=== PATIENT | female | born 1960 | race African-American/Black ===

== ENCOUNTER 2016-10-24 04:48 | Emergency (ER) | payer SELFPAY ==
[~2016-10-24] VITALS: Ht 172.7 cm; Wt 68.0 kg
[2016-10-24] MEDS ORDERED: PREG75CA PO (05:01)
[2016-10-24] MEDS ORDERED: HYDR-548 PO (05:01)
--- NOTE | 2016-10-24 05:19 | NUR ---
Pt ambulated to room with slow shuffled gait using cane. Pt c/o severe lower back radiating down left leg s/p mech fall. Pos LUCIE. at bedside, awaiting further orders.
[2016-10-24] MEDS ORDERED: HYDROCODONE/APAP 5-325MG TABLET PO ONE (05:30)
[2016-10-24] MEDS ORDERED: HYDROCODONE/APAP 5-325MG TABLET ONE (05:35)
--- NOTE | 2016-10-24 05:35 | NUR ---
Pt seen by . Pt medicated for discomfort, will monitor for effects of medication. Xrays pending.
--- NOTE | 2016-10-24 06:25 | NUR ---
Pt sts pain is improving. Pt stable for discharge per MD. Pt given ACI. Pt verbalized understanding of dc instructions. Pt ambulated out of er with slow steady gait using her cane with ride home.
[2016-10-24 06:26] VITALS: BP 140/70
== END 2016-10-24 06:27 | disposition home or self-care (01) ==
LOC: ER 04:51
DX: M54.5 Low back pain (principal); R53.1 Weakness; M62.552 Muscle wasting and atrophy, not elsewhere classified, left thigh; Z85.038 Personal history of other malignant neoplasm of large intestine; W10.9XXA Fall (on) (from) unspecified stairs and steps, initial encounter; Y93.01 Activity, walking, marching and hiking; Y92.89 Other specified places as the place of occurrence of the external cause; Y99.8 Other external cause status
CPT/HCPCS: 72100; A4663